=== PATIENT | female | born 1940 | race Caucasian/White ===

== ENCOUNTER 2016-07-28 09:10 | Emergency (ER) | payer OTHER ==
[2016-07-28 09:30] VITALS: BP 109/65; PULSE 75; RESP 16; TEMP 97.7; O2SAT 99
--- NOTE | 2016-07-28 10:02 | UCPHY ---
H & P Patient Type: New Chief Complaint Nursing Narrative: C/o nonproductive cough, chest congestion, nasal drainage x 5 days. Denies fever. HPI/ROS: CHIEF COMPLAINT: Cough HISTORY OF PRESENT ILLNESS: This patient is a 76 year old woman presenting with a five day history of cough. It is associated with sinus congestion, rhinorrhea , and throat irritation.Symptoms are moderate in severity. She denies dyspnea, although she does hear rattling when she breaths. No chest pain. The patient is vaccinated for influenza and pneumonia. She denies fever or chest pain. She has been using cough drops, but otherwise has not used any other over the counter medications. REVIEW OF SYSTEMS: A ten point review of systems was performed and is negative with the exception of the items mentioned in the HPI. Source: Patient Exam Limitations: No limitations - Personal History Current Tetanus Diphtheria and Acellular Pertussis (TDAP): Yes Tetanus Vaccine Date: within 10 years - Medical/Surgical History Hx Asthma: No Hx Chronic Respiratory Disease: No Hx Diabetes: No Hx Cardiac Disease: No Hx Renal Disease: No Hx Cirrhosis: No Hx Alcoholism: No Hx HIV/AIDS: No Hx Splenectomy or Spleen Trauma: No Other PMH: Denies - Family History Significant Family History: No pertinent family hx - Social History Smoking Status: Never smoked Alcohol Use: None Drug Use: None Additional Social History: PCP is Dr. Lizette Mejia. - Physical Exam Exam: General Appearance: Alert. Vital signs reviewed. Eyes: Pupils equal and round, no conjunctival injection, no discharge. Anicteric. ENT, Mouth: Mucous membranes are moist, no oropharyngeal erythema or edema. Neck: No lymphadenopathy, supple. No stridor. Respiratory: Lungs are clear to auscultation; no wheezes, rales, or rhonchi. Cardiovascular: Regular rate and rhythm; no murmur, rub, or gallop. Gastrointestinal: Abdomen is soft and nontender, no masses or organomegaly, bowel sounds normal. Skin: Warm and dry, no rashes on exposed skin, normal color. Back: Nontender to palpation over the thoracolumbar spine. No CVAT. Extremities: No lower extremity edema, no calf tenderness or swelling. Neurological: Alert and oriented. Moving all four extremities easily and equally. Psychiatric: Normal affect. Constitutional: Initial Vital Signs Temperature (C) 36.5 C 07/28/16 09:28 Heart Rate 75 03/04/17 09:28 Respiratory Rate 16 07/28/16 09:28 Blood Pressure 109/65 07/28/16 09:28 O2 Sat (%) 99 07/28/16 09:28 O2 Delivery Mode Room Air Allergies/Adverse Reactions: No Known Allergies Allergy (Verified 07/28/16 09:29) Home Medications: Medication Instructions Recorded HYDROcodone/HOMATROPINE HYCODA 1 tsp PO Q4-6PRN PRN #120 ml 07/28/16 [Hycodan Syrup (*)] Zyrtec 07/28/16 Medical Decision Making ED Course/Re-evaluation: This patient presents with a five day history of cough and sinus congestion. Lungs are clear to auscultation. There are no acute abnormal findings one exam. I discussed that this is likely a viral upper respiratory infection. I have low suspicion for pneumonia. I discussed prescribing narcotic cough medication for cough suppressant. I discussed that she should not drive or operate heavy machinery while taking his medication. I have also advised her to follow up with her primary care physician this week if not improving. Differential Diagnosis: Differential diagnosis includes but is not limited to viral upper respiratory infection, pneumonia, bronchitis, and influenza. Departure - Departure Disposition: Home, Routine, Self-Care Clinical Impression: Upper respiratory infection Qualifiers: URI type: unspecified viral URI Qualified Code(s): J06.9 - Acute upper respiratory infection, unspecified; B97.89 - Other viral agents as the cause of diseases classified elsewhere Condition: Good Instructions: Upper Respiratory Infection (ED) Additional Instructions: Use the narcotic cough suppressant as prescribed. Do not drive or operative heavy machinery while taking this medication. Drink plenty of fluids. Follow up with your primary care provider next week if not improving. Return to the emergency department immediately for high fever, severe headache or neck pain, difficulty breathing, abdominal pain, rash or other worsening of condition. Adult Pain & Fever Control: We recommend Acetaminophen (Tylenol) and Ibuprofen (Motrin,Advil) for pain and fever control. When fever is high or pain severe, both drugs can be used at the same time, but at different intervals. Please note the time differences. Your dose is: Acetaminophen 650mg every 4 to 6 hours Ibuprofen 600mg every 6-8 hours with food Note: do not take Acetaminophen with Hydrocodone (Vicodin, Lortab) or Oycodone (Percocet). These medications also contain Acetaminophen. No more than 3000mg of Acetaminophen should be taken in 24 hours (for an adult). Referrals: FERNANDO MEJIA [Non Staff Provider (MD)] - As per Instructions Prescriptions: HYDROcodone/HOMATROPINE HYCODA [Hycodan Syrup (*)] 1 tsp PO Q4-6PRN PRN #120 ml PRN Reason: Cough, Moderate - PQRS PQRS Measurement: 134: Depression screening and followup, PRIME MD-PHQ2 (12 years and older) Over the last 2 weeks, how often have you been bothered by any of the following problems? 1. Feeling down, depressed, or hopeless? 2. Little interest or pleasure in doing things? Patient answered no to both 1 and 2 130: Documentation of medications. Reviewed all patient medications, doses, route and frequency. 226: Do you smoke? No. 47: 65 and older: Advanced care planning. [Patient has advanced directive.] 51: 18 years old and older with diagnosis of COPD, spirometry performance. Patient has no history of COPD 52: 18 years old and older with COPD and symptoms of COPD or FEV1<60% predicted prescribed a B Agonist. Not applicable. Report Scribed for: Tamara Link Report Scribed by: Jacey Gautam Date of Report: 07/28/16 Time of Report: 10:29 Physician Review and Approval Statement: 07/28/16 10:01 Portions of this note were transcribed by the medical equipment technician. I, Dr. Tamara Link, personally performed the history, physical exam, and medical decision- making; and confirmed the accuracy of the information in the transcribed note.
== END 2016-07-28 10:56 | disposition home or self-care (01) ==
LOC: CED 09:10
DX: J06.9 Acute upper respiratory infection, unspecified (principal); B97.89 Other viral agents as the cause of diseases classified elsewhere
CPT/HCPCS: G0463-PO

== ENCOUNTER → 2016-09-07 | Outpatient (CLI) | payer OTHER | LOC: CIMAGING 08:20 | DX: Z12.31 Encounter for screening mammogram for malignant neoplasm of breast (principal) | CPT/HCPCS: G0202 ==

== ENCOUNTER → 2017-11-08 | Outpatient (CLI) | payer OTHER | LOC: CIMAGING 10:27 | PROVIDERS: ATTEND Family Medicine | DX: Z12.31 Encounter for screening mammogram for malignant neoplasm of breast (principal) ==